=== PATIENT | female | born 1995 | race Asian ===

== ENCOUNTER 2021-06-15 17:43 | Observation (INO) | payer BC ==
[~2021-06-15] VITALS: Ht 167.6 cm; Wt 99.9 kg
[2021-06-15 18:11] VITALS: BP 174/98; TEMP 98.6; Ht 167.6 cm; Wt 99.9 kg
[2021-06-15 19:37] LABS: PLATELET COUNT 257 K/uL (152-353)
[2021-06-15 19:58] LABS: PARTIAL THROMBOPLASTIN TIME 24.3 SECONDS (24.5-33.6)
[2021-06-15 20:00] VITALS: BP 162/90; TEMP 97.53
[2021-06-16] VITALS (7 sets, daily range): BP systolic 130–180; BP diastolic 86–96; TEMP 98.6–99.4
[2021-06-16 03:05] LABS: PLATELET COUNT 270 K/uL (152-353)
[2021-06-16 03:17] LABS: POTASSIUM 3.9 mmol/L (3.6-5.2)
[2021-06-16] MEDS ORDERED: HUMALOG KW100 UNIT/M SC (08:24)
[2021-06-16] MEDS ORDERED: METF500T PO (08:24)
[2021-06-16] MEDS ORDERED: SPIR100T7 PO (08:25)
== END 2021-06-16 17:30 | disposition home or self-care (01) ==
LOC: MED/SURG 17:43
PROVIDERS: ADMIT Family Medicine; ATTEND Family Medicine
DX: R07.9 Chest pain, unspecified (principal); E11.9 Type 2 diabetes mellitus without complications; I10 Essential (primary) hypertension; R05.1 Acute cough
CPT/HCPCS: 36415; 80053; 81000; 82550; 82948; 83735; 84100; 84484; 85027; 85610; 85730; 87502; 87635; 93005; 96360; 96361; 96367; 96372; 96374; 99220; G0378; G0379; J1650; J1815; U0003